=== PATIENT | female | born 1975 | race Caucasian/White ===

== ENCOUNTER 2018-11-24 17:45 | Emergency (ER) | payer OTHER ==
[~2018-11-24] VITALS: Ht 149.9 cm; Wt 72.6 kg
[2018-11-24 17:53] VITALS: BP 182/117
--- NOTE | 2018-11-24 18:02 | NUR ---
43/F BIB SELF WITH C/O COLD SYMTOM, BODYACHE, COUGH, HEADACHE, EAR PAIN, ON AND OFF FEVER, SORE THROAT SINCE YESTERDAY. HX OF HTN. PATIENT STATES PAIN OF 7/10 AT THIS TIME; VSS; PATIENT POSITIONED FOR COMFORT; HOB ELEVATED; BEDRAILS UP X2; BED DOWN. ER MD MADE AWARE OF PT STATUS.
[2018-11-24 19:04] VITALS: BP 166/83
--- NOTE | 2018-11-24 19:04 | NUR ---
Patient discharged with v/s stable. Written and verbal after care instructions given and explained. Patient alert, oriented and verbalized understanding of instructions. Ambulatory with steady gait. All questions addressed prior to discharge. ID band removed. Patient advised to follow up with PMD. Rx of PROMETHAZINE, FLONASE given. Patient educated on indication of medication including possible reaction and side effects. Opportunity to ask questions provided and answered.
== END 2018-11-24 19:04 | disposition home or self-care (01) ==
LOC: MED 17:45
DX: B34.9 Viral infection, unspecified (principal); I10 Essential (primary) hypertension; Z88.1 Allergy status to other antibiotic agents
CPT/HCPCS: 99283

== ENCOUNTER 2018-12-03 17:16 | Emergency (ER) | payer OTHER ==
[~2018-12-03] VITALS: Ht 149.9 cm; Wt 64.0 kg
[2018-12-03 17:36] VITALS: BP 184/124
[2018-12-03] MEDS ORDERED: LOSA100T1 PO (17:40)
--- NOTE | 2018-12-03 17:54 | NUR ---
Patient ambulated to bed 7. RN evaluating patient at bedside.
--- NOTE | 2018-12-03 18:00 | NUR ---
C/O BLOOD IN URINE X 1 DAY. DIAGNOSED WITH GALLSTONES 1 1/2 MONTHS AGO. BACK PAIN 12/05 MED HX: HTN/ACID REFLUX
[2018-12-03] MEDS ORDERED: KETOROLAC 30 MG/ML VIAL IM ONE (18:35)
[2018-12-03 18:49] LABS: BASOPHILS % (AUTO) 0.4 % (0.0-2.0); EOSINOPHILS # (AUTO) 0.2 K/uL (0-0.4); EOSINOPHILS % (AUTO) 1.2 % (0.0-4.0); HEMATOCRIT 42.7 % (36-48); HEMOGLOBIN 14.1 g/dL (12.0-16.0); LYMPHOCYTES # (AUTO) 1.7 K/uL (2.5-16.5); LYMPHOCYTES % (AUTO) 13.7 % (20.5-51.1); MEAN CORPUSCULAR HEMOGLOBIN 30 pg (27-31); MEAN CORPUSCULAR HGB CONC 33 g/dL (33-37); MEAN CORPUSCULAR VOLUME 90.2 fL (80-94); MONOCYTES # (AUTO) 0.7 K/uL (0.8-1.0); MONOCYTES % (AUTO) 5.8 % (1.7-9.3); NEUTROPHILS # (AUTO) 9.9 K/uL (1.8-7.7); NEUTROPHILS % (AUTO) 78.9 % (42.2-75.2); PLATELET COUNT (AUTO) 273 K/uL (140-450); RED BLOOD CELL COUNT(AUTO) 4.74 MIL/uL (4.20-5.40); RED CELL DISTRIBUTION WIDTH 13.6 % (11.6-13.7); WHITE BLOOD COUNT (AUTO) 12.5 K/uL (4.8-10.8)
[2018-12-03 18:54] LABS: BILIRUBIN,URINE NEGATIVE (NEGATIVE); BLOOD, URINE 3+ (NEGATIVE); COLOR,URINE RED (YELLOW); LEUKOCYTE ESTERASE ,URINE 1+ (NEGATIVE); NITRITE, URINE POSITIVE (NEGATIVE); PH,URINE 7.5 (5.0-9.0); UGLUCOSE TRACE (NEGATIVE)
[2018-12-03 19:07] LABS: ANION GAP 12.8 (8-16); CARBON DIOXIDE 27.7 mmol/L (21-32); CREATININE 0.8 mg/dL (0.6-1.3); POTASSIUM 3.5 mmol/L (3.5-5.1)
[2018-12-03 19:08] LABS: APPEARANCE,URINE BLOODY (CLEAR)
--- NOTE | 2018-12-03 19:08 | NUR ---
RECEIVED REPORT FROM DESHAWN ANTONIO.
[2018-12-03 19:10] LABS: RBC,URINE TOO NUMEROUS TO COUN /HPF (0-5); WBC,URINE 20-60 /HPF (0-5)
[2018-12-03 19:13] LABS: ALBUMIN 3.7 g/dL (3.4-5.0); TOTAL BILIRUBIN 0.5 mg/dL (0.0-1.0)
--- NOTE | 2018-12-03 19:28 | NUR ---
PT TAKEN TO CT VIA WC.
--- NOTE | 2018-12-03 19:35 | NUR ---
PT RETURNED FROM CT.
[2018-12-03] MEDS ORDERED: cefTRIAXone 1,000 MG in LIDOCAINE MPF 1% - 5 mL VIAL 2.1 ML IM ONE (20:20)
--- NOTE | 2018-12-03 20:50 | NUR ---
PT RECEIVED ROCEPHIN 1000 MG IM. WILL MONITOR FOR 20 MINS.
[2018-12-03 21:15] VITALS: BP 149/96
--- NOTE | 2018-12-03 21:15 | NUR ---
Patient discharged with v/s stable. Written and verbal after care instructions given and explained. Patient alert, oriented and verbalized understanding of instructions. Ambulatory with steady gait. All questions addressed prior to discharge. ID band removed. Patient advised to follow up with PMD. Rx of Keflex and Ibuprofen given. Patient educated on indication of medication including possible reaction and side effects. Opportunity to ask questions provided and answered.
--- NOTE | 2018-12-03 21:15 | NUR ---
Pt is pink, breathing even/unlabored. VSS. No adverse side effects reported from medication.
== END 2018-12-03 21:15 | disposition home or self-care (01) ==
LOC: MED 17:16
DX: R31.9 Hematuria, unspecified (principal); M54.9 Dorsalgia, unspecified; I10 Essential (primary) hypertension; Z88.1 Allergy status to other antibiotic agents; Z79.899 Other long term (current) drug therapy
CPT/HCPCS: 36415; 74176; 80053; 81001; 81025; 85025; 87086; 87186; 96372; 99284; J0696; J1885; J2001

== ENCOUNTER 2019-02-10 06:02 | Day surgery (SDC) | payer OTHER ==
[~2019-02-10] VITALS: Ht 149.9 cm; Wt 63.5 kg
[~2019-02-10 06:02] MED LIST: LOSA100T1 PO
[2019-02-10] MEDS ORDERED: ONDANSETRON 4 MG/2 ML VIAL ONE (07:15)
[2019-02-10] MEDS ORDERED: PROPOFOL 200 MG/20 ML VIAL IV ONE (07:15)
[2019-02-10] MEDS ORDERED: SEVOFLURANE 250 ML BTL INH ONE (07:15)
[2019-02-10] MEDS ORDERED: ROCURONIUM 50 MG/5 ML VIAL IV ONE (07:15)
[2019-02-10] MEDS ORDERED: SUCCINYLCHOLINE CHLORIDE 200 MG/10 ML VIAL IVP ONE (07:15)
[2019-02-10] MEDS ORDERED: GLYCOPYRROLATE 0.2 MG/ML VIAL ONE (07:15)
[2019-02-10] MEDS ORDERED: NEOSTIGMINE 1:1000 10 MG/10 ML VIAL ONE (07:15)
[2019-02-10] MEDS ORDERED: DEXAMETHASONE 4 MG/ML VIAL ONE (07:15)
[2019-02-10] MEDS ORDERED: LEVOFLOXACIN 500 MG/D5W PREMIX 100 ML IV SCH (07:20)
[2019-02-10] MEDS ORDERED: BUPIVACAINE-MPF 0.25% 30 ML VIAL INJ ONE (07:30)
[2019-02-10] MEDS ORDERED: LEVOFLOXACIN 500 MG/D5W PREMIX 100 ML IV ONE (07:37)
[2019-02-10] MEDS ORDERED: MEPERIDINE 50 MG/ML SYR ONE (07:44)
[2019-02-10] MEDS ORDERED: MIDAZOLAM 2 MG/2 ML VIAL ONE (07:44)
[2019-02-10] MEDS ORDERED: fentaNYL 0.05 MG/ML VIAL ONE (07:44)
[2019-02-10] MEDS ORDERED: NACL 0.9% 1,000 ML IV SCH (08:38)
[2019-02-10] MEDS ORDERED: MORPHINE SULFATE 2 MG/ML SYR IVP PRN (08:40)
[2019-02-10] MEDS ORDERED: HYDROmorphone 1 MG/ML AMP IVP PRN ×2 (08:40→09:00)
[2019-02-10] MEDS ORDERED: MORPHINE SULFATE 4 MG/ML SYR IV PRN (08:40)
[2019-02-10] MEDS ORDERED: HYDROcodone/APAP 5/325 MG 1 TAB TAB PO PRN (08:40)
[2019-02-10] MEDS ORDERED: ONDANSETRON 4 MG/2 ML VIAL IV PRN (08:40)
[2019-02-10] MEDS ORDERED: ACETAMINOPHEN 325 MG TAB PO PRN (08:40)
[2019-02-10] MEDS ORDERED: diphenhydrAMINE 50 MG/ML VIAL IVP PRN (09:00)
[2019-02-10] MEDS ORDERED: ONDANSETRON 4 MG/2 ML VIAL IVP PRN (09:00)
[2019-02-10] MEDS ORDERED: LACTATED RINGERS 1,000 ML IV SCH (09:00)
[2019-02-10] MEDS ORDERED: MEPERIDINE 25 MG/ML SYR IVP PRN (09:00)
[2019-02-10] MEDS ORDERED: HYDROmorphone PFS 2 MG/ML SYR ONE (09:20)
== END 2019-02-10 10:57 | disposition home or self-care (01) ==
LOC: MDS 06:02 → MMU 06:03 → MDS 10:57
PROVIDERS: ATTEND Surgery
DX: K80.10 Calculus of gallbladder with chronic cholecystitis without obstruction (principal); K42.9 Umbilical hernia without obstruction or gangrene; I10 Essential (primary) hypertension; Z87.442 Personal history of urinary calculi; Z98.890 Other specified postprocedural states
CPT/HCPCS: 47562; 49585; 71045; 88304; 93005; J0330; J1100; J1170; J1956; J2175; J2250; J2405; J2704; J2710; J3010; J3490; J7120